=== PATIENT | female | born 1965 | race African-American/Black ===

== ENCOUNTER 2018-09-03 13:03 | Outpatient (CLI) | payer OTHER ==
[~2018-09-03 13:03] MED LIST: AMBIEN5 MG ORAL; ATIVAN0.5 MG ORAL; GABAPENTIN100 MG ORAL
--- NOTE | 2018-09-03 13:39 | General Progress Note ---
Assessment/Plan Problem List: (1) Colon polyps ICD Codes: K63.5 - Polyp of colon SNOMED: 94418533 (2) Abdominal spasms ICD Codes: R10.9 - Unspecified abdominal pain SNOMED: 13462858, 809134674 (3) Abdominal pain ICD Codes: R10.9 - Unspecified abdominal pain SNOMED: 60066016 (4) GERD (gastroesophageal reflux disease) ICD Codes: K21.9 - Gastro-esophageal reflux disease without esophagitis SNOMED: 819812462 (5) Colitis ICD Codes: K52.9 - Noninfective gastroenteritis and colitis, unspecified SNOMED: 63180206 (6) Anxiety ICD Codes: F41.9 - Anxiety disorder, unspecified SNOMED: 23704722 (7) Rectocele ICD Codes: N81.6 - Rectocele SNOMED: 942101542 (8) Constipation ICD Codes: K59.00 - Constipation, unspecified SNOMED: 87556409 Assessment/Plan repeat colonoscopy in 5 years miralax creon elavil RTC 1 month no response to bentyl nor xifaxan Subjective ROS Limited/Unobtainable: Yes Allergies: Coded Allergies: No Known Allergies (Unverified , 07/16/18) Objective General Appearance: alert EENT: normal ENT inspection Neck: supple Cardiovascular: normal rate Respiratory/Chest: decreased breath sounds Abdomen: normal bowel sounds, non tender, soft Extremities: non-tender Saman Page MD Sep 03, 2018 13:39
[2018-09-03 15:18] VITALS: BP 117/75
== END 2018-09-03 13:33 | disposition home or self-care (01) ==
LOC: PAN 13:03
DX: K63.5 Polyp of colon (principal); R10.9 Unspecified abdominal pain; K52.9 Noninfective gastroenteritis and colitis, unspecified; F41.9 Anxiety disorder, unspecified; N81.6 Rectocele; K59.00 Constipation, unspecified
CPT/HCPCS: 99212

== ENCOUNTER → 2019-01-20 | Outpatient (CLI) | payer OTHER ==
--- NOTE | 2019-01-20 20:00 | Progress Note ---
DATE: 01/20/2019 SUBJECTIVE: The patient is still having rectal pain. She states that the pain has been going on for over a year. She had a colonoscopy done already. Last time, we gave her Elavil which made her constipated so she stopped and then we gave her Creon. She did not try to Creon as she was scared. MiraLAX, she had to take two doses . OBJECTIVE: VITAL SIGNS: Temperature 97.7, blood pressure 141/72, pulse 82, respiratory rate 20. HEENT: Normocephalic and atraumatic. Sclerae anicteric. NECK: Supple. No evidence of obvious lymphadenopathy. CARDIOVASCULAR: Regular rate and rhythm. Plus S1 and S2. No obvious murmur. LUNGS: Clear to auscultation bilaterally. ABDOMEN: Positive bowel sounds. Soft, nontender. No rebound. No guarding. No peritoneal sign. EXTREMITIES: No cyanosis. No clubbing. No edema. ASSESSMENT: The patient is a 53-year-old female with history of colonic polyps status post recent colonoscopy complained of severe rectal pain. Elavil did not work for her. Creon, she did not try. MiraLAX was not adequate. PLAN: Plan will be to give her Linzess 72 mcg p.o. daily. She was also given prescription for tramadol as p.r.n. for pain. She was encouraged to try Creon. The patient wants to be referred for motility study at [facility]. We are going to try to get authorization for that. Also the patient had a recent ER admission at [facility] CT scan according to her, which was negative. Saman Page M.D. DR: Alpesh JOB#: [id number] CC:
== END | disposition home or self-care (01) ==
LOC: PAN 13:02
DX: K62.89 Other specified diseases of anus and rectum (principal); Z86.010 Personal history of colon polyps